=== PATIENT | female | born 1970 | race Caucasian/White ===

== ENCOUNTER 2022-10-09 23:10 | Inpatient (IN) | payer OTHER ==
[2022-10-10] MEDS ORDERED: Ondansetron 4 MG/2 ML SDV IVPUSH PRN ×2 (00:20→14:45)
[2022-10-10] MEDS ORDERED: Dextrose 5%-Lactated Ringers 1,000 ML IV SCH ×2 (00:30→07:30)
[2022-10-10] MEDS: HYDROmorphone/Normal Saline 6 MG/30 ML PCA Vial IV PRN ×3 (00:59→22:58)
[2022-10-10] MEDS ORDERED: Naloxone 0.4 MG/ML SDV IV PRN (01:00)
[2022-10-10] MEDS ORDERED: Venlafaxine 75 MG Cap.ER PO SCH (01:15)
[2022-10-10] MEDS ORDERED: Ketamine 500 MG/5 ML MDV IV SCH ×3 (07:30→10:00)
[2022-10-10] MEDS ORDERED: Neostigmine Methylsulfate 1 MG/ML 5 ML Syringe ONE (07:47)
[2022-10-10] MEDS ORDERED: Glycopyrrolate 0.2 MG/ML 5 ML MDV ONE (07:47)
[2022-10-10] MEDS ORDERED: Rocuronium 50 MG/5 ML Vial ONE (07:47)
[2022-10-10] MEDS ORDERED: Ondansetron 4 MG/2 ML SDV ONE (07:47)
[2022-10-10] MEDS ORDERED: Succinylcholine 200 MG/10 ML MDV ONE (07:47)
[2022-10-10] MEDS ORDERED: Dexamethasone 4 MG/ML SDV ONE (07:47)
[2022-10-10] MEDS ORDERED: Propofol 200 MG/20 ML SDV ONE (07:47)
[2022-10-10] MEDS ORDERED: fentaNYL 250 MCG/5 ML SDV ONE ×2 (07:48→12:03)
[2022-10-10] MEDS ORDERED: cefOXitin 2 GM in Sodium Chloride 0.9% 50 ML IV ONE (09:30)
[2022-10-10] MEDS ORDERED: Bupivacaine 0.5% 30 ML SDV ONE (09:44)
[2022-10-10] MEDS ORDERED: Lidocaine 1% with EPINEPHrine 1:100,000 50 ML MDV ONE (09:44)
[2022-10-10] MEDS ORDERED: Ropivacaine 36 ML, dexAMETHasone 8 MG, EPINEPHrine 0.4 MG, Sodium Chloride 0.9% 41.6 ML NERVRT SCH ×4 (10:00)
[2022-10-10] MEDS ORDERED: Ketamine 16 MG in Sodium Chloride 0.9% 19.84 ML IV SCH (10:00)
[2022-10-10] MEDS ORDERED: Meropenem 500 MG SDV ONE (10:45)
[2022-10-10] MEDS ORDERED: Lactated Ringers 1,000 ML ONE (13:02)
[2022-10-10] MEDS ORDERED: Metoclopramide 10 MG/2 ML SDV IV PRN (14:15)
[2022-10-10] MEDS ORDERED: Cyclobenzaprine 10 MG Tab PO PRN (14:36)
[2022-10-10] MEDS ORDERED: diphenhydrAMINE 50 MG/ML SDV IVPUSH PRN (14:45)
[2022-10-10] MEDS ORDERED: hydrOXYzine HCL 100 MG/2 ML SDV IM PRN (14:45)
[2022-10-10] MEDS ORDERED: Metoclopramide 10 MG/2 ML SDV IVPUSH PRN (14:45)
[2022-10-10] MEDS ORDERED: Labetalol 20 MG/4 ML Syringe IVPUSH PRN (15:00)
[2022-10-10] MEDS: MVI, Adult with Vitamin K 10 ML, Thiamine 200 MG, Zinc/Copper/Manganese/Selenium 1 ML i... IV SCH ×4 (15:50)
[2022-10-10] MEDS ORDERED: Pantoprazole 40 MG Vial IVPUSH SCH (16:00)
[2022-10-10] MEDS: Heparin Sodium 5,000 Units/ML Vial SUBCUT SCH (17:39)
[2022-10-10] MEDS: cefOXitin 2 GM in Sodium Chloride 0.9% 50 ML IV SCH ×2 (17:39→23:43)
[2022-10-10] MEDS: Benzocaine/Cetylpyridinium/Menthol Lozenge MUCMEM PRN ×2 (18:19→20:09)
[2022-10-10] MEDS: Venlafaxine 75 MG Cap.ER PO SCH (21:19)
[2022-10-10] MEDS: Acetaminophen 500 MG Tab PO SCH (21:19)
[2022-10-10] MEDS: Dextrose 5%-Lactated Ringers 1,000 ML IV SCH (22:12)
[2022-10-11] MEDS: Benzocaine/Cetylpyridinium/Menthol Lozenge MUCMEM PRN ×3 (01:14→13:29)
[2022-10-11] MEDS ORDERED: Iopamidol 612 MG/ML 50 ML SDV PO STA (02:47)
[2022-10-11] MEDS: Dextrose 5%-Lactated Ringers 1,000 ML IV SCH ×3 (04:30→13:29)
[2022-10-11] MEDS: Heparin Sodium 5,000 Units/ML Vial SUBCUT SCH ×2 (05:11→17:34)
[2022-10-11] MEDS: cefOXitin 2 GM in Sodium Chloride 0.9% 50 ML IV SCH ×3 (05:11→17:32)
[2022-10-11] MEDS: Acetaminophen 500 MG Tab PO SCH ×3 (05:12→21:13)
[2022-10-11 05:33] LABS: ESTIMATED GFR 113 mL/min (>60)
[2022-10-11] MEDS ORDERED: Venlafaxine 75 MG Cap.ER PO SCH (09:00)
[2022-10-11] MEDS: Docusate Sodium 100 MG Cap PO SCH ×2 (09:45→21:14)
[2022-10-11] MEDS: Celecoxib 200 MG Cap PO SCH ×2 (09:45→21:13)
[2022-10-11] MEDS: Bisacodyl 5 MG Tab PO SCH ×2 (09:45→21:13)
[2022-10-11] MEDS: HYDROmorphone/Normal Saline 6 MG/30 ML PCA Vial IV PRN ×2 (10:12→21:42)
[2022-10-11] MEDS: Pantoprazole 40 MG Tab.CR PO SCH (15:45)
[2022-10-11] MEDS: MVI, Adult with Vitamin K 10 ML, Thiamine 200 MG, Zinc/Copper/Manganese/Selenium 1 ML i... IV SCH ×4 (15:45)
[2022-10-11] MEDS: Venlafaxine 75 MG Cap.ER PO SCH (21:13)
[2022-10-12] MEDS: Dextrose 5%-Lactated Ringers 1,000 ML IV SCH (03:03)
[2022-10-12] MEDS: Acetaminophen 500 MG Tab PO SCH ×3 (05:41→22:21)
[2022-10-12] MEDS: Heparin Sodium 5,000 Units/ML Vial SUBCUT SCH ×2 (05:42→17:36)
[2022-10-12] MEDS: Docusate Sodium 100 MG Cap PO SCH ×2 (08:37→19:59)
[2022-10-12] MEDS: Celecoxib 200 MG Cap PO SCH ×2 (08:37→19:59)
[2022-10-12] MEDS: Bisacodyl 5 MG Tab PO SCH ×2 (08:38→19:59)
[2022-10-12] MEDS ORDERED: Dextrose 5%-Lactated Ringers 1,000 ML IV SCH (09:00)
[2022-10-12] MEDS ORDERED: Cyanocobalamin (Vitamin B12) 1,000 MCG/ML SDV IM ONE (09:00)
[2022-10-12] MEDS ORDERED: Furosemide 20 MG/2 ML VIAL IV ONE (09:15)
[2022-10-12] MEDS: HYDROmorphone 2 MG Tab PO PRN ×3 (10:31→22:21)
[2022-10-12] MEDS: Pantoprazole 40 MG Tab.CR PO SCH (17:36)
[2022-10-12] MEDS: Acetaminophen 500 MG Tab PO PRN (19:58)
[2022-10-12] MEDS: Venlafaxine 75 MG Cap.ER PO SCH (19:59)
[2022-10-13] MEDS: Heparin Sodium 5,000 Units/ML Vial SUBCUT SCH (05:13)
[2022-10-13] MEDS: Acetaminophen 500 MG Tab PO SCH (05:13)
[2022-10-13] MEDS ORDERED: Furosemide 20 MG/2 ML VIAL IVPUSH ONE (07:12)
[2022-10-13] MEDS: Acetaminophen 500 MG Tab PO PRN (07:37)
[2022-10-13] MEDS ORDERED: Magnesium Hydroxide 400 MG/5 ML Susp 30 ML Cup PO PRN (09:23)
[2022-10-13] MEDS: Docusate Sodium 100 MG Cap PO SCH (09:32)
[2022-10-13] MEDS: Bisacodyl 5 MG Tab PO SCH (09:32)
[2022-10-13] MEDS: Celecoxib 200 MG Cap PO SCH (09:32)
[2022-10-13] MEDS: HYDROmorphone 2 MG Tab PO PRN (10:20)
== END 2022-10-13 10:55 | disposition home or self-care (01) | DRG 329 ==
LOC: JP.MS 23:10 → MERGE 23:10
PROVIDERS: ADMIT Surgery; ATTEND Surgery
PROC: 0DB80ZZ Excision of Small Intestine, Open Approach (ICD-10-PCS; principal; 2022-10-10)
PROC: 0D9A00Z Drainage of Jejunum with Drainage Device, Open Approach (ICD-10-PCS; 2022-10-10)
PROC: 0WQF0ZZ Repair Abdominal Wall, Open Approach (ICD-10-PCS; 2022-10-10)
PROC: 0DBA0ZZ Excision of Jejunum, Open Approach (ICD-10-PCS; 2022-10-10)
PROC: 3E0M05Z Introduction of Adhesion Barrier into Peritoneal Cavity, Open Approach (ICD-10-PCS; 2022-10-10)
DX: K95.89 Other complications of other bariatric procedure (principal); K55.019 Acute (reversible) ischemia of small intestine, extent unspecified; K55.021 Focal (segmental) acute infarction of small intestine; K43.0 Incisional hernia with obstruction, without gangrene; K56.1 Intussusception; F32.A Depression, unspecified; Z88.0 Allergy status to penicillin; Z88.8 Allergy status to other drugs, medicaments and biological substances; Z79.899 Other long term (current) drug therapy
CPT/HCPCS: 36415; 74240; 74240-26; 80053; 82306; 82525; 82607; 82728; 83735; 84100; 84590; 84630; 85025; 88302; 88307; 93971-RT; 97140-GP; 97162-GP; 97530-GP; 97535-GP; A9270-GY; C9113; J0171; J0330; J0694; J1100; J1170; J1644; J1940; J2020; J2185; J2405; J2704; J2710; J2795; J3010; J3411; J3420; J3490; J7120; J7121; Q9967